=== PATIENT | male | born 1955 | race Caucasian/White ===

== ENCOUNTER 2017-04-10 10:44 | Emergency (ER) | payer OTHER, SELFPAY ==
[~2017-04-10] VITALS: Ht 180.3 cm; Wt 103.9 kg
[~2017-04-10 10:44] MED LIST: GLIP10 PO; LIRA0.6P; LISI20 PO; METF500 PO
[2017-04-10] MEDS ORDERED: ATOR10 PO (12:05)
[2017-04-10] MEDS ORDERED: ALBU90OI6 INH (12:07)
[2017-04-10 12:27] LABS: Influenza A Negative (NEGATIVE); Influenza B Negative (NEGATIVE)
[2017-04-10] MEDS ORDERED: Cheratussin AC118 ML PO (12:39)
[2017-04-10] MEDS ORDERED: Zithromax250 MG PO (12:39)
[2017-04-10] MEDS ORDERED: Flonase 0.05% N16 GM (12:39)
[2017-04-10] MEDS ORDERED: Mucinex1200 MG PO (12:39)
[2017-11-27] MEDS ORDERED: ATOR20 PO (14:14)
[2017-11-27] MEDS ORDERED: LISI20 PO (14:14)
[2017-11-27] MEDS ORDERED: LIRA0.6P (14:15)
[2017-11-27] MEDS ORDERED: ALBU90OI61 INH (14:15)
[2017-11-27] MEDS ORDERED: GLIP5 PO (14:16)
[2017-11-27] MEDS ORDERED: METF500C PO (14:16)
[2017-11-27] MEDS ORDERED: Multiple Vitam1 EAC1 PO (14:16)
[2017-11-27] MEDS ORDERED: PANT40 PO (14:17)
[2017-11-27] MEDS ORDERED: Humulin N100 UNIT/1 SC (14:17)
[2017-12-04] MEDS ORDERED: TRULICITY1.5 MG/0.5 SC (11:19)
== END 2017-04-10 12:55 | disposition home or self-care (01) ==
LOC: ER 10:44
PROVIDERS: Physician Assistant
DX: R05 Cough (principal); E11.9 Type 2 diabetes mellitus without complications; J44.9 Chronic obstructive pulmonary disease, unspecified; Z79.899 Other long term (current) drug therapy; Z79.84 Long term (current) use of oral hypoglycemic drugs; Z87.891 Personal history of nicotine dependence
CPT/HCPCS: 71046; 87804; 99284

== ENCOUNTER 2018-03-06 10:15 | Day surgery (SDC) | payer OTHER ==
[~2018-03-06] VITALS: Ht 180.3 cm; Wt 111.4 kg
[~2018-03-06 10:15] MED LIST changes: +ALBU90OI6 INH; +ALBU90OI61 INH; +ATOR10 PO; +ATOR20 PO; +Cheratussin AC118 ML PO; +Flonase 0.05% N16 GM; +GLIP5 PO; +Humulin N100 UNIT/1 SC; +METF500C PO; +Mucinex1200 MG PO; +Multiple Vitam1 EAC1 PO; +Omeprazole20 M1 PO; +PANT40 PO; +Prinivil10 MG PO; +TRULICITY1.5 MG/0.5 SC; +Zithromax250 MG PO
== END 2018-03-06 12:53 | disposition home or self-care (01) ==
LOC: ORSCSDS 10:15
PROVIDERS: Internal Medicine Gastroenterology
PROC: 0DB68ZX Excision of Stomach, Via Natural or Artificial Opening Endoscopic, Diagnostic (ICD-10-PCS; principal; 2018-03-06 12:00)
DX: K21.9 Gastro-esophageal reflux disease without esophagitis (principal); K29.70 Gastritis, unspecified, without bleeding; Z87.19 Personal history of other diseases of the digestive system; E78.00 Pure hypercholesterolemia, unspecified; I10 Essential (primary) hypertension; J44.9 Chronic obstructive pulmonary disease, unspecified; G47.33 Obstructive sleep apnea (adult) (pediatric); E78.5 Hyperlipidemia, unspecified; E11.9 Type 2 diabetes mellitus without complications; E66.9 Obesity, unspecified; Z68.34 Body mass index [BMI] 34.0-34.9, adult; Z79.84 Long term (current) use of oral hypoglycemic drugs; Z79.899 Other long term (current) drug therapy
CPT/HCPCS: 82947; 88305; 88342; J2001; J2250; J7120

== ENCOUNTER 2018-03-11 23:04 | Emergency (ER) | payer OTHER ==
[~2018-03-11] VITALS: Ht 180.3 cm; Wt 111.1 kg
[2018-03-11] MEDS ORDERED: ASPI81CH PO (23:22)
[2018-03-11] MEDS ORDERED: CITA20 PO (23:23)
[2018-03-11] MEDS ORDERED: GABA300 PO (23:23)
[2018-03-11] MEDS ORDERED: ESOM20 PO (23:26)
== END 2018-03-12 00:08 | disposition home or self-care (01) ==
LOC: ER 23:04
DX: M75.102 Unspecified rotator cuff tear or rupture of left shoulder, not specified as traumatic (principal); Z79.84 Long term (current) use of oral hypoglycemic drugs; Z79.899 Other long term (current) drug therapy; Z79.82 Long term (current) use of aspirin; E11.9 Type 2 diabetes mellitus without complications; J44.9 Chronic obstructive pulmonary disease, unspecified; Z87.891 Personal history of nicotine dependence
CPT/HCPCS: 99283

== ENCOUNTER 2019-07-25 07:58 | Day surgery (SDC) | payer MEDICARE, OTHER ==
[~2019-07-25] VITALS: Ht 180.3 cm; Wt 113.0 kg
[~2019-07-25 07:58] MED LIST changes: +ASPI81CH PO; +CITA20 PO; +ESOM20 PO; +GABA300 PO
[2019-07-25] MEDS ORDERED: GABA300 PO (08:44)
== END 2019-07-25 10:21 | disposition home or self-care (01) ==
LOC: ORSCSDS 07:58
PROVIDERS: Orthopaedic Surgery
PROC: 0LN80ZZ Release Left Hand Tendon, Open Approach (ICD-10-PCS; principal; 2019-07-25 08:45)
DX: M65.332 Trigger finger, left middle finger (principal); I10 Essential (primary) hypertension; J44.9 Chronic obstructive pulmonary disease, unspecified; Z87.891 Personal history of nicotine dependence; E11.9 Type 2 diabetes mellitus without complications; E66.9 Obesity, unspecified; Z68.34 Body mass index [BMI] 34.0-34.9, adult; Z79.82 Long term (current) use of aspirin; Z79.4 Long term (current) use of insulin; Z79.899 Other long term (current) drug therapy
CPT/HCPCS: 82947; J0171; J0690; J2250; J2704; J3010; J7120

== ENCOUNTER 2019-11-20 07:11 | Day surgery (SDC) | payer MEDICARE, OTHER ==
[~2019-11-20] VITALS: Ht 180.3 cm; Wt 119.7 kg
[~2019-11-20 07:11] MED LIST changes: +HUMULIN; +HUMULIN N100 UNIT/3 SC; +OMEP20ER PO; +TRULICITY1.5 MG/0.1 SC
--- NOTE | 2019-11-20 10:57 | NUR ---
Patient up to Ambulate independently. Gait steady. Discharge instructions reviewed with patient. Patient verbalizes understanding. Copy given to patient to take home. Patient States Post-Procedure ride home has been arranged. Discharged via wheelchair to private car for ride home.
== END 2019-11-20 11:11 | disposition home or self-care (01) ==
LOC: ORSCMMR 07:11 → ORD 08:45 → ORSCMMR 08:45
DX: L72.0 Epidermal cyst (principal); D17.1 Benign lipomatous neoplasm of skin and subcutaneous tissue of trunk; I10 Essential (primary) hypertension; G47.33 Obstructive sleep apnea (adult) (pediatric); Z87.891 Personal history of nicotine dependence; E11.9 Type 2 diabetes mellitus without complications; K21.9 Gastro-esophageal reflux disease without esophagitis; E66.01 Morbid (severe) obesity due to excess calories; Z68.36 Body mass index [BMI] 36.0-36.9, adult; Z79.899 Other long term (current) drug therapy; Z79.82 Long term (current) use of aspirin; Z79.84 Long term (current) use of oral hypoglycemic drugs
CPT/HCPCS: 82947; 88307; A9270-GY; J0690; J1885; J2250; J2370; J2405; J2704; J2765; J3010; J7120

== ENCOUNTER 2020-01-01 08:58 | Day surgery (SDC) | payer MEDICARE, OTHER ==
[~2020-01-01] VITALS: Ht 180.3 cm; Wt 118.2 kg
[~2020-01-01 08:58] MED LIST changes: +Aspir 8181 MG PO; +HUMULIN N100 UNIT/1 SC
--- NOTE | 2020-01-01 13:06 | NUR ---
01/01/20 1306 Asia Jiang refused fluids
== END 2020-01-01 13:06 | disposition home or self-care (01) ==
LOC: ORSCSDS 08:58
PROVIDERS: Surgery
PROC: 0DBH8ZX Excision of Cecum, Via Natural or Artificial Opening Endoscopic, Diagnostic (ICD-10-PCS; principal; 2020-01-01 10:15)
PROC: 0DBN8ZX Excision of Sigmoid Colon, Via Natural or Artificial Opening Endoscopic, Diagnostic (ICD-10-PCS; principal; 2020-01-01 10:15)
PROC: 0DBL8ZX Excision of Transverse Colon, Via Natural or Artificial Opening Endoscopic, Diagnostic (ICD-10-PCS; principal; 2020-01-01 10:15)
DX: Z12.11 Encounter for screening for malignant neoplasm of colon (principal); D12.0 Benign neoplasm of cecum; D12.3 Benign neoplasm of transverse colon; D12.5 Benign neoplasm of sigmoid colon; D37.4 Neoplasm of uncertain behavior of colon; E11.9 Type 2 diabetes mellitus without complications; I10 Essential (primary) hypertension; E78.5 Hyperlipidemia, unspecified; G47.33 Obstructive sleep apnea (adult) (pediatric); J44.9 Chronic obstructive pulmonary disease, unspecified; K21.9 Gastro-esophageal reflux disease without esophagitis; F32.9 Major depressive disorder, single episode, unspecified; Z79.82 Long term (current) use of aspirin; Z79.4 Long term (current) use of insulin; Z79.899 Other long term (current) drug therapy; Z87.891 Personal history of nicotine dependence
CPT/HCPCS: 82947; 88305; J2704; J7040; J7120

== ENCOUNTER 2020-11-25 12:41 | Day surgery (SDC) | payer MEDICARE, OTHER ==
[~2020-11-25] VITALS: Ht 180.3 cm; Wt 116.6 kg
[~2020-11-25 12:41] MED LIST changes: +Celexa20 MG PO; +PIOG15 PO; +TADA10TA PO; +TIOT18 INH
--- NOTE | 2020-11-25 13:48 | NUR ---
Ambulatory in Day Surgery History, Chart, Medications and Allergies reviewed before start of procedure. Pre-Op teaching done. Pt verbalizes understanding. Patient States Post-Procedure ride home has been arranged.
--- NOTE | 2020-11-25 14:19 | NUR ---
11/25/20 1419 IRVIN PEREZ History, Chart, Medications and Allergies reviewed before start of procedure. 3-LEAD EKG REVIEWED WITH PHYSICIAN PRIOR TO START OF PROCEDURE. MONITOR INTACT WITH CONTINUOUS PULSE OXIMETRY AND INTERMITTENT BP. O2 VIA POM INTACT THROUGHOUT SEDATION/PROCEDURE. MAC WITH DR. LERMA. See Anesthesia record
--- NOTE | 2020-11-25 15:20 | NUR ---
ARRIVED INTO STEP VSS PATIENT WAKING UP RECIEVED REPORT
--- NOTE | 2020-11-25 15:51 | NUR ---
Discharge instructions reviewed with patient. Patient verbalizes understanding. Copy given to patient to take home. Patient States Post-Procedure ride home has been arranged.
== END 2020-11-25 23:11 | disposition home or self-care (01) ==
LOC: ORSCMMR 12:41 → ORD 14:00 → ORSCSDS 14:00 → ORSCMMR 23:11
PROVIDERS: Surgery
PROC: 0DBP8ZX Excision of Rectum, Via Natural or Artificial Opening Endoscopic, Diagnostic (ICD-10-PCS; principal; 2020-11-25 14:00)
PROC: 0DBN8ZX Excision of Sigmoid Colon, Via Natural or Artificial Opening Endoscopic, Diagnostic (ICD-10-PCS; principal; 2020-11-25 14:00)
PROC: 0DBM8ZX Excision of Descending Colon, Via Natural or Artificial Opening Endoscopic, Diagnostic (ICD-10-PCS; principal; 2020-11-25 14:00)
PROC: 0DBL8ZX Excision of Transverse Colon, Via Natural or Artificial Opening Endoscopic, Diagnostic (ICD-10-PCS; principal; 2020-11-25 14:00)
DX: Z86.010 Personal history of colon polyps (principal); D12.3 Benign neoplasm of transverse colon; D12.4 Benign neoplasm of descending colon; D12.5 Benign neoplasm of sigmoid colon; K62.1 Rectal polyp; E78.5 Hyperlipidemia, unspecified; J44.9 Chronic obstructive pulmonary disease, unspecified; G47.33 Obstructive sleep apnea (adult) (pediatric); K21.9 Gastro-esophageal reflux disease without esophagitis; F41.9 Anxiety disorder, unspecified; E66.9 Obesity, unspecified; Z68.35 Body mass index [BMI] 35.0-35.9, adult; E11.40 Type 2 diabetes mellitus with diabetic neuropathy, unspecified; Z79.4 Long term (current) use of insulin; Z79.899 Other long term (current) drug therapy; Z79.82 Long term (current) use of aspirin; Z87.891 Personal history of nicotine dependence
CPT/HCPCS: 82947; 88305; J2704; J7120

== ENCOUNTER → 2020-12-28 | Outpatient (CLI) | payer MEDICARE, OTHER ==
[2020-12-28 20:09] LABS: Creatinine, Urine Random 45.6 mg/dL (27.00-270.00)
[2020-12-28 20:12] LABS: Microalb/Creat Ratio UR, Rand 370.614 mg/g (0.000-30.000)
== END | disposition home or self-care (01) ==
LOC: LAB 13:52 → LAB SHORT 13:52
PROVIDERS: Nurse Practitioner Family
DX: E11.65 Type 2 diabetes mellitus with hyperglycemia (principal)
CPT/HCPCS: 82043; 82570

== ENCOUNTER 2022-03-06 06:29 | Day surgery (SDC) | payer MEDICARE, OTHER ==
[~2022-03-06] VITALS: Ht 180.3 cm; Wt 115.8 kg
[~2022-03-06 06:29] MED LIST changes: +ALBU90OI INH; +CITALOPRAM HBR20 M1 PO; +MULVITA PO
--- NOTE | 2022-03-06 07:16 | NUR ---
Ambulatory in [facility] warming gown applied. Surgical site prepped with 2% Chlorhexidine cloth wipe. History, Chart, Medications and Allergies reviewed before start of procedure.Lungs clear T/O to Auscultation. Patient confirms NPO status and agrees with scheduled surgery. Pre-Op teaching done. Pt verbalizes understanding. Patient reports completing Chlorhexadine shower X2 prior to admission to hospital.THE PATIENT'S BLOOD SUGAR WAS 49, CHARGE NURSE TEXTED DR. CHAPA
--- NOTE | 2022-03-06 10:37 | NUR ---
Patient up to Ambulate independently. Gait steady. Dressing to procedure site clean, dry, intact with no visible drainage, swelling, erythema or bruising noted. Pt and spouse educated about discharge instructions. Patient and spouse verbalized understanding. Discharged via wheelchair to private car for ride home.
== END 2022-03-06 23:01 | disposition home or self-care (01) ==
LOC: ORSCMMR 06:29 → ORD 08:00 → ORSCMMR 08:00
PROVIDERS: Surgery
PROC: 0FT44ZZ Resection of Gallbladder, Percutaneous Endoscopic Approach (ICD-10-PCS; principal; 2022-03-06 08:00)
DX: K80.20 Calculus of gallbladder without cholecystitis without obstruction (principal); K76.0 Fatty (change of) liver, not elsewhere classified; I10 Essential (primary) hypertension; J44.9 Chronic obstructive pulmonary disease, unspecified; G47.33 Obstructive sleep apnea (adult) (pediatric); E11.9 Type 2 diabetes mellitus without complications; E78.5 Hyperlipidemia, unspecified; Z79.84 Long term (current) use of oral hypoglycemic drugs; Z79.899 Other long term (current) drug therapy; Z79.82 Long term (current) use of aspirin; E66.9 Obesity, unspecified; Z68.35 Body mass index [BMI] 35.0-35.9, adult
CPT/HCPCS: 82947; 88304; J0690; J1100; J1885; J2250; J2370; J2405; J2704; J2795; J3010; J7120; J7799

== ENCOUNTER → 2022-11-20 | Outpatient (CLI) | payer MEDICARE, OTHER ==
[~2022-11-20] MED LIST changes: +SULFAMETHOXAZO1 EAC1 PO
== END ==
LOC: LAB 15:00 → LAB SHORT 15:00
DX: L03.211 Cellulitis of face (principal)
CPT/HCPCS: 87070; 87077; 87147; 87186; 87205

== ENCOUNTER 2022-11-29 06:28 | Day surgery (SDC) | payer MEDICARE, OTHER ==
[~2022-11-29] VITALS: Ht 182.9 cm; Wt 119.6 kg
[~2022-11-29 06:28] MED LIST changes: -SULFAMETHOXAZO1 EAC1 PO
[2022-11-29] MEDS ORDERED: SULFAMETHOXAZO1 EAC1 PO (06:53)
--- NOTE | 2022-11-29 07:00 | NUR ---
11/29/22 0700 Yesenia Evans AT 0659 PLEDGET AT 0700
[2022-11-29 07:21] VITALS: BP 183/90
== END 2022-11-29 07:40 | disposition home or self-care (01) ==
LOC: ORSCSDS 06:28
DX: H25.12 Age-related nuclear cataract, left eye (principal); Z53.9 Procedure and treatment not carried out, unspecified reason
CPT/HCPCS: 82947

== ENCOUNTER 2022-12-12 06:56 | Day surgery (SDC) | payer MEDICARE, OTHER ==
[~2022-12-12] VITALS: Ht 177.8 cm; Wt 120.4 kg
[~2022-12-12 06:56] MED LIST changes: +SULFAMETHOXAZO1 EAC1 PO
--- NOTE | 2022-12-12 07:48 | NUR ---
12/12/22 0748 Jay Wyatt CALL LIGHT WITHIN REACH. TETRACAINE IN LEFT EYE AT 0747 AND PLEDGETT IN AT 0755
[2022-12-12 09:03] VITALS: BP 133/75
== END 2022-12-12 09:16 | disposition home or self-care (01) ==
LOC: ORSCSDS 06:56
PROVIDERS: Student in an Organized Health Care Education/Training Program
PROC: 08RK3JZ Replacement of Left Lens with Synthetic Substitute, Percutaneous Approach (ICD-10-PCS; principal; 2022-12-12 08:30)
DX: E11.36 Type 2 diabetes mellitus with diabetic cataract (principal); Z96.1 Presence of intraocular lens; Z87.891 Personal history of nicotine dependence; J44.9 Chronic obstructive pulmonary disease, unspecified; G47.33 Obstructive sleep apnea (adult) (pediatric); E78.5 Hyperlipidemia, unspecified; Z79.82 Long term (current) use of aspirin; Z79.4 Long term (current) use of insulin; Z79.899 Other long term (current) drug therapy
CPT/HCPCS: 82947; J2250; J3010; J7040; V2632

== ENCOUNTER → 2023-04-08 | Outpatient (CLI) | payer MEDICARE, OTHER ==
[2023-04-09 12:41] LABS: Stool Occult Bld Immuno 1 Positive (NEGATIVE)
== END | disposition home or self-care (01) ==
LOC: LAB SHORT 23:00
PROVIDERS: Nurse Practitioner Family
DX: D64.9 Anemia, unspecified (principal)
CPT/HCPCS: 82274

== ENCOUNTER 2024-02-14 07:04 | Day surgery (SDC) | payer MEDICARE, OTHER ==
[~2024-02-14] VITALS: Ht 180.3 cm; Wt 122.5 kg
[2024-02-14] VITALS (8 sets, daily range): BP systolic 116–172; BP diastolic 69–108
[2024-02-14] MEDS ORDERED: Heparin Sodium 1000 Units/ML 10ML MDV ONE (07:25)
[2024-02-14] MEDS ORDERED: Verapamil HCL 2.5 MG/ML 2ML Injection ONE (07:25)
[2024-02-14] MEDS ORDERED: NS 1,000 ML IV ONE ×2 (07:25→08:16)
[2024-02-14] MEDS ORDERED: NS 250 ML IV ONE (07:25)
[2024-02-14] MEDS ORDERED: Nitroglycerin 2 MG/20 ML BTL ONE (07:30)
[2024-02-14] MEDS ORDERED: FentaNYL Citrate 50 MCG/ML 2 ML Injection ONE (08:16)
[2024-02-14] MEDS ORDERED: Midazolam HCl 1MG / ML 2ML Vial ONE (08:16)
--- NOTE | 2024-02-14 10:00 | NUR ---
INITIAL 2 CC OF AIR REMOVED FROM RIGHT RADIAL TR BAND. SITE C/D/I SOFT/NONTENDER, NO EVIDENCE OF BLEEDING. PATIENT CONVERSING APPROPRIATELY. PATIENT TOLERATING PO INTAKE WELL. PATIENT DENYING ANY PAIN.
--- NOTE | 2024-02-14 10:27 | NUR ---
ALL AIR REMOVED FROM RIGHT RADIAL TR BAND. SITE C/D/I SOFT/NONTENDER, NO EVIDENCE OF BLEEDING. VSS ON RA. PATIENT CONVERSING APPROPRIATELY. PATIENT DENYING ANY PAIN.
--- NOTE | 2024-02-14 11:07 | NUR ---
PATIENT DISCHARGED HOME AT THIS TIME. TR BAND REMVOED, CLOTH DOT AND ARM BOARD IN PLACE. SITE C/D/I SOFT/NONTENDER, NO EVIDENCE OF BLEEDING. PIV REMOVED WITHOUT DIFFICULTY, CATHETER INTACT. DISCHARGE INSTRUCTIONS REVIEWED WITH PATIENT AND SPOUSE. VSS ON RA. PATIENT DENYING ANY PAIN. PATIENT WHEELED TO HOSPITAL ENTRANCE, FAMILY ABLE TO PROVIDE TRANSPORTATION HOME.
== END 2024-02-14 11:37 | disposition home or self-care (01) ==
LOC: MHTC 07:04
DX: I25.10 Atherosclerotic heart disease of native coronary artery without angina pectoris (principal); J44.9 Chronic obstructive pulmonary disease, unspecified; I10 Essential (primary) hypertension; E11.9 Type 2 diabetes mellitus without complications; E78.5 Hyperlipidemia, unspecified; G47.33 Obstructive sleep apnea (adult) (pediatric); Z79.4 Long term (current) use of insulin; Z79.84 Long term (current) use of oral hypoglycemic drugs; Z79.899 Other long term (current) drug therapy; Z90.49 Acquired absence of other specified parts of digestive tract
CPT/HCPCS: 76937; 93454; 99152; 99153; C1769; C1887; C1894; J1644; J2250; J3010; J7030; J7050; Q9967

== ENCOUNTER → 2024-07-17 | Outpatient (CLI) | payer MEDICARE, OTHER ==
[2024-07-19 12:24] LABS: Stool Occult Bld Immuno 1 Positive (NEGATIVE)
== END ==
LOC: LAB SHORT 13:45 → LAB 13:45
PROVIDERS: Nurse Practitioner Family
DX: D58.2 Other hemoglobinopathies (principal)
CPT/HCPCS: 82274